=== PATIENT | female | born 1965 ===

== ENCOUNTER 2018-10-31 14:55 | Emergency (ER) | payer OTHER ==
--- NOTE | 2018-10-31 15:18 | EDM.PDOC ---
ED HPI GENERAL MEDICAL PROBLEM - General Chief Complaint: General Stated Complaint: RASH Time Seen by Provider: 10/31/18 15:00 Source of Information: Reports: Patient History Limitations: Reports: No Limitations - History of Present Illness INITIAL COMMENTS - FREE TEXT/NARRATIVE: According to patient she noticed some rash over the left shoulder yesterday evening. the rash was itchy and burning, so she scratched on and off over the rash. Today she has noticed some blistering os the rash and redness around it. No fever or chills. No tingling or numbness. Pt stayed in a motel last night, and was unpacking lots of stuff from her truck last night. So she is not sure if she got some bug bite. No wheezing, shortness of breath. No nausea or vomiting. No other complaints. Onset: Gradual Onset Date: 10/30/18 Duration: Getting Worse Location: Reports: Upper Extremity, Right Quality: Reports: Ache Severity: Mild Improves with: Reports: None Worsens with: Reports: None Associated Symptoms: Reports: Rash. Denies: Confusion, Chest Pain, Cough, Diaphoresis, Fever/Chills, Headaches, Nausea/Vomiting, Seizure, Shortness of Breath, Syncope, Weakness - Related Data Allergies Allergy/AdvReac Type Severity Reaction Status Date / Time aspirin Allergy Other Verified 10/31/18 15:10 Penicillins Allergy Other Verified 10/31/18 15:10 ED ROS GENERAL - Review of Systems Review Of Systems: See Below Constitutional: Denies: Fever, Chills HEENT: Denies: Ear Pain, Rhinitis, Throat Pain Respiratory: Denies: Shortness of Breath, Wheezing, Pleuritic Chest Pain, Cough , Sputum Cardiovascular: Denies: Chest Pain, Lightheadedness GI/Abdominal: Denies: Abdominal Pain, Nausea, Vomiting : Denies: Flank Pain, Frequency Musculoskeletal: Denies: Joint Pain, Joint Swelling Skin: Reports: Pruritis, Rash, Erythema. Denies: Bruising Neurological: Denies: Headache, Numbness, Paresthesia, Tingling, Weakness ED EXAM, GENERAL - Physical Exam Exam: See Below Exam Limited By: No Limitations General Appearance: Alert, WD/WN, No Apparent Distress Eye Exam: Bilateral Eye: EOMI, PERRL Ears: Normal External Exam, Normal Canal, Hearing Grossly Normal, Normal TMs Ear Exam: Bilateral Ear: Auricle Normal, Canal Normal, TM normal Nose: Normal Inspection, Normal Mucosa, No Blood Throat/Mouth: Normal Inspection, Normal Lips, Normal Teeth, Normal Gums, Normal Oropharynx, Normal Voice, No Airway Compromise Head: Atraumatic, Normocephalic Neck: Normal Inspection, Supple, Non-Tender, Full Range of Motion Respiratory/Chest: No Respiratory Distress, Lungs Clear, Normal Breath Sounds, No Accessory Muscle Use, Chest Non-Tender Cardiovascular: Normal Peripheral Pulses, Regular Rate, Rhythm, No Edema, No Gallop, No JVD, No Murmur, No Rub Extremities: Normal Inspection, Normal Range of Motion, Non-Tender, Normal Capillary Refill, No Pedal Edema Skin Exam: Warm, Other (left shoulder: There is a large area of erythema about 5cm by 6cm over the shoulder tip. The rash has some area of skin break open from excoriations and also has honey crusted appearance.) Course - Vital Signs Text/Narrative:: Pt reassured she has developed contact dermatitis. this might be related to animal or insect bite or matter. She has localized reaction, with secondary infection form skin break down. Honey crusted makes me suspicious of staph infection. Pt reassured, as she has severe itching, she did receive kenalog 40mg IM. I have advised Benadryl 25mg 3 times daily for itching. Also advised calamine lotion on the rash. I have empirically started her on Ceftin 500mg BID for 10 days. Followup with her primary care provider if not better. - Orders/Labs/Meds Orders: Active Orders 24 hr Category Date Time Status Triamcinolone Acetonide [Kenalog-40] Med 10/31/18 15:12 Once 40 mg INJECT ONETIME ONE Departure - Departure Time of Disposition: 15:30 Disposition: Home, Self-Care 01 Condition: Fair Clinical Impression: Contact dermatitis - Discharge Information *PRESCRIPTION DRUG MONITORING PROGRAM REVIEWED*: Not Applicable *COPY OF PRESCRIPTION DRUG MONITORING REPORT IN PATIENT [place]: Not Applicable Referrals: PCP,None [Primary Care Provider] - - Problem List & Annotations (1) Contact dermatitis SNOMED Code(s): 04829551 Code(s): L25.9 - UNSPECIFIED CONTACT DERMATITIS, UNSPECIFIED CAUSE Status: Acute Current Visit: Yes - Problem List Review Problem List Initiated/Reviewed/Updated: Yes - My Orders Last 24 Hours: My Active Orders 10/31/18 15:12 Triamcinolone Acetonide [Kenalog-40] 40 mg INJECT ONETIME ONE - Assessment/Plan Last 24 Hours: My Active Orders 10/31/18 15:12 Triamcinolone Acetonide [Kenalog-40] 40 mg INJECT ONETIME ONE Assessment:: left shoulder contact dermatitis Plan: Pt reassured she has developed contact dermatitis. this might be related to animal or insect bite or matter. She has localized reaction, with secondary infection form skin break down. Honey crusted makes me suspicious of staph infection. Pt reassured, as she has severe itching, she did receive kenalog 40mg IM. I have advised Benadryl 25mg 3 times daily for itching. Also advised calamine lotion on the rash. I have empirically started her on Ceftin 500mg BID for 10 days. Followup with her primary care provider if not better.
[2018-10-31] MEDS: Triamcinolone Acetonide 40 MG/ML 1 ML MDV INJECT ONE (15:22)
[2018-10-31] MEDS: Triamcinolone Acetonide 40 MG/ML 1 ML MDV ONE (15:23)
== END 2018-10-31 15:30 | disposition home or self-care (01) ==
LOC: LB.ED 14:55
DX: L25.9 Unspecified contact dermatitis, unspecified cause (principal); Z88.0 Allergy status to penicillin; Z88.6 Allergy status to analgesic agent
CPT/HCPCS: 96372; 99282-25; J3301